=== PATIENT | male | born 1965 | race Caucasian/White ===

== ENCOUNTER 2023-02-05 08:30 | Emergency (ER) | payer OTHER, SELFPAY ==
[2023-02-05 09:05] VITALS: BP 140/78; PULSE 102; RESP 16; TEMP 37.9; O2SAT 97
--- NOTE | 2023-02-05 09:09 | ED.URI ---
HPI - URI/Sore Throat General Chief Complaint: Upper Respiratory Infection Stated Complaint: Flu Like Symptoms Time Seen by Provider: 02/05/23 09:09 Source: patient and RN notes reviewed Mode of arrival: ambulatory Limitations: no limitations History of Present Illness HPI Narrative: 57-year-old male presented for complaint of headache, nasal congestion, painful cough, sore throat and fatigue. Onset 5 days. Endorses sick [facility] at [facility] with [facility]. He is taking occasional ibuprofen for symptoms. Denies shortness of breath, wheezing, vomiting or diarrhea. MD elicited complaint: cough Related Data Home Medications Medication Instructions Recorded Confirmed lisinopril 10 tablet 02/05/23 mg-hydrochlorothiazide 12.5 mg tablet rosuvastatin 20 mg tablet mg 02/05/23 Allergies Allergy/AdvReac Type Severity Reaction Status Date / Time No Known Allergies Allergy Verified 02/05/23 09:04 Review of Systems Review of Systems: CONSTITUTIONAL: Endorses malaise, chills, sweats, fever EYES: Denies visual changes, redness, or discharge ENT: Reports rhinorrhea, congestion, otalgia, sore throat CARDIOVASCULAR: Denies chest pain, palpitations, edema RESPIRATORY: Reports cough, Denies dyspnea GASTROINTESTINAL: reports nausea and decreased appetite Denies abdominal pain, vomiting, diarrhea SKIN: Denies rash or itching MUSCULOSKELETAL: Endorses myalgia NEUROLOGIC: Reports headache PMFSH Past Medical History Medical History HTN (hypertension) Exam Narrative: GENERAL: mildly Ill-appearing, nontoxic no acute distress. EYES: PERRLA, conjunctivae clear ENT: Mucous membranes moist. TMs pearly barton with dull light reflex bilaterally; no tragal tenderness. NECK: Supple. No lymphadenopathy CHEST: Clear to auscultation, breath sounds equal. No wheezing, rhonchi, rales, or stridor. No respiratory distress, speaks in full sentences. HEART: Regular rate and rhythm. No murmur heard. SKIN: Warm, dry, no rash. NEURO: Alert and oriented x3. PSYCH: Normal mood and affect Course Course Emergency Course: Patient is aware of diagnosis, understands and agrees to treatment plan. Anticipatory guidance given. Patient agrees to follow-up as directed and is aware of reasons to seek care at the emergency department. Portions of this record may have been created with voice recognition software Level of Care: Express Care Visit Vital Signs Vital signs: Vital Signs Temperature 100.2 F H 02/05/23 09:05 Pulse Rate 102 H 02/05/23 09:05 Respiratory Rate 16 02/05/23 09:05 Blood Pressure 140/78 02/05/23 09:05 Pulse Oximetry 97 02/05/23 09:05 Oxygen Delivery Room Air 02/05/23 09:05 Temperature 100.2 F H 02/05/23 09:05 Pulse Rate 102 H 02/05/23 09:05 Respiratory Rate 16 02/05/23 09:05 Blood Pressure 140/78 02/05/23 09:05 Pulse Oximetry 97 02/05/23 09:05 Oxygen Delivery Room Air 02/05/23 09:05 reviewed MDM - URI/Sore Throat MDM Narrative Medical decision making narrative: FLU A Positive Discussed physical exam findings. Advised supportive measures and signs/symptoms to go to the ER. Pt is appropriate for outpt treatment and f/u. Differential Diagnosis Differential diagnosis: Likely upper respiratory infection, sinusitis and viral infection Discharge Plan Discharge Clinical Impression: Influenza Patient Disposition: Home, Self-Care Condition: Stable Instructions: Antibiotic Form, Influenza (ED) Additional Instructions: Influenza positive You should avoid crowds until you are fever free for 24 hours without the use of fever reducing medications, or the symptoms are improved Rest. Drink plenty of fluids. Tylenol 1000mg every 8 hours as needed for pain/fever Recommend Flonase spray and Zyrtec (or Claritin/Pat) for sinus pressure/congestion over the counter Cough syrup may cause drowsiness; avoid driving o
== END 2023-02-05 09:21 | disposition home or self-care (01) ==
PROVIDERS: Emergency Provider Nurse Practitioner Family; PCP Family Medicine
DX: J11.1 Influenza due to unidentified influenza virus with other respiratory manifestations (principal); I10 Essential (primary) hypertension
CPT/HCPCS: 87804; 99213; G0463